=== PATIENT | male | born 1955 | race Caucasian/White ===

== ENCOUNTER 2017-07-27 15:02 | Outpatient (CLI) | payer MEDICARE ==
--- NOTE | 2017-07-27 19:14 | RAD ---
CERVICAL SPINE THREE VIEWS: 07/27/17 HISTORY: 61-year-old male with cervicaglia, history of surgery two weeks ago with persistent neck pain. Anterior cervical fusion changes noted at C6-C7 with intradiscal prosthesis. There does appear to be some persistent soft tissue swelling in the prevertebral region at the C6 and C7 level. No signific ant malalignment. Generalized spondylosis. IMPRESSION: Postop anterior cervical fusion changes at C6-7 without malalignment. Some persistent prevertebral s oft tissue swelling at C6 and C7 probably from prior surgery. POS: [facility]
== END 2017-07-27 15:03 | disposition home or self-care (01) ==
LOC: TBSIIMAG 15:02
PROVIDERS: ATTEND Physician Assistant
DX: M54.2 Cervicalgia (principal); Z98.1 Arthrodesis status
CPT/HCPCS: 72040

== ENCOUNTER 2017-09-07 14:09 | Outpatient (CLI) | payer MEDICARE ==
--- NOTE | 2017-09-07 15:47 | RAD ---
CERVICAL SPINE FOUR VIEWS: History: Post op follow up. Comparison: 07-27-17 FINDINGS: Anterior plate and screws again noted at C6-7 with interbody implant. Hardware is unchanged in positi on. Vertebral body height and alignment is maintained. Mild prevertebral soft tissue fullness at this level is again noted and unchanged from prior exam. IMPRESSION: Stable findings from prior study. POS: [facility]
== END 2017-09-07 14:10 | disposition home or self-care (01) ==
LOC: TBSIIMAG 14:09
PROVIDERS: ATTEND Neurological Surgery
DX: M50.30 Other cervical disc degeneration, unspecified cervical region (principal); M50.20 Other cervical disc displacement, unspecified cervical region
CPT/HCPCS: 72040

== ENCOUNTER 2017-12-14 10:15 | Outpatient (CLI) | payer MEDICARE ==
--- NOTE | 2017-12-14 11:50 | RAD ---
THREE VIEWS CERVICAL SPINE: Date: 12-14-17 Comparison: 09-07-17 History: Re-evaluate cervical spine following surgery in June. Cervical radiculopathy, right shoul joana pain. FINDINGS: Anterior discectomy and fusion hardware is again noted at C6-7, stable. Stable prevertebral soft tiss ues. No significant anterolisthesis or retrolisthesis. Open mouth odontoid view demonstrates normal a ppearing dens and C1-2 articulation. There is bilateral facet and uncal vertebral osteophyte formation within the mid cervical spine, left greater than right, most significant at C3-4 and C4-5. IMPRESSION: Stable post-operative and degenerative change within the cervical spine. POS: ML
== END 2017-12-14 10:16 | disposition home or self-care (01) ==
LOC: TBSIIMAG 10:15
PROVIDERS: ATTEND Neurological Surgery
DX: M47.22 Other spondylosis with radiculopathy, cervical region (principal); Z98.1 Arthrodesis status
CPT/HCPCS: 72040